=== PATIENT | male | born 1970 | race Caucasian/White ===

== ENCOUNTER 2017-10-17 01:10 | Emergency (ER) | payer SELFPAY ==
[~2017-10-17] VITALS: Ht 180.3 cm; Wt 83.9 kg
[2017-10-17] MEDS ORDERED: METF500C PO (02:06)
[2017-10-17] MEDS ORDERED: GLIP5 PO (02:07)
== END 2017-10-17 03:01 | disposition left against medical advice (07) ==
LOC: ER 01:10
DX: Z53.21 Procedure and treatment not carried out due to patient leaving prior to being seen by health care provider (principal)